=== PATIENT | female | born 1990 | race Caucasian/White ===

== ENCOUNTER 2017-08-19 12:28 | Inpatient (IN) | payer OTHER ==
[~2017-08-19 12:28] MED LIST: ONDANSETRON 4 MG INJ
[2017-08-19 15:42] LABS: ADD MAN DIFF? NO
[2017-08-19 15:43] LABS: ABNORMAL IP MESSAGE 1; BASOPHILS % 0.3 % (0.0-2.0); EOSINOPHILS # 0.1 10^3/ul (0.0-0.5); EOSINOPHILS % 0.6 % (0.0-7.0); HEMOGLOBIN 11.6 g/dl (12.0-16.0); LYMPHOCYTES % 20.4 % (15.0-51.0); MEAN CORPUSCULAR HEMOGLOBIN 28.2 pg (29.0-33.0); MEAN CORPUSCULAR HGB CONC 33.1 g/dl (32.0-37.0); MEAN CORPUSCULAR VOLUME 85.2 fl (82.0-101.0); MEAN PLATELET VOLUME 13.1 fl (7.4-10.4); MONOCYTE # 0.5 10^3/ul (0.3-0.9); MONOCYTES % 4.7 % (0.0-11.0); NEUTROPHIL # 7.1 10^3/ul (1.6-7.5); NEUTROPHILS % 73.6 % (39.0-77.0); PLATELET COUNT 103 10^3/UL (140-415); RED BLOOD COUNT 4.11 10^6/ul (4.20-5.40); RED CELL DISTRIBUTION WIDTH 14.8 % (11.5-14.5)
[2017-08-19 15:43] LABS: WHITE BLOOD COUNT 9.6 10^3/ul (4.8-10.8)
[2017-08-19 15:45] LABS: POSITIVE DIFF @See below
[2017-08-19] MEDS: LACTATED RINGER'S 1,000 ML IV ×3 (15:51→20:45)
[2017-08-19 16:02] LABS: ALANINE AMINOTRANSFERASE 26 IU/L (13-69); ALBUMIN 3.6 g/dl (3.3-4.9); ALBUMIN/GLOBULIN RATIO 1.12; ALKALINE PHOSPHATASE 97 IU/L (42-121); ANION GAP 17 (8-16); ASPARTATE AMINO TRANSFERASE 18 IU/L (15-46); BILIRUBIN,INDIRECT 0.2 mg/dl (0-1.1); BILIRUBIN,TOTAL 0.2 mg/dl (0.2-1.3); BLOOD UREA NITROGEN 10 mg/dl (7-20); CARBON DIOXIDE 21 mmol/L (21-31); CHLORIDE 106 mmol/L (97-110); CREATININE 0.63 mg/dl (0.44-1.00); GLUCOSE 77 mg/dl (70-220); SODIUM 140 mmol/L (135-144); TOTAL PROTEIN 6.8 g/dl (6.1-8.1)
[2017-08-19 16:52] LABS: INR 0.95; PROTIME 12.8 Sec (11.9-14.9)
[2017-08-19 16:53] LABS: PARTIAL THROMBOPLASTIN TIME 27.2 Sec (25.0-35.0)
[2017-08-19] MEDS ORDERED: MISOPROSTOL 200 MCG TAB PR (17:00)
[2017-08-19] MEDS ORDERED: CARBOPROST 250 MCG INJ IM (17:00)
[2017-08-19] MEDS ORDERED: METHYLERGONOVINE 0.2 MG INJ IM (17:00)
[2017-08-19] MEDS ORDERED: OXYTOCIN 30 UNITS/LR 500 ML IV (17:00)
[2017-08-19 18:32] LABS: UR BACTERIA FEW /HPF (NONE SEEN); UR MUCUS FEW /HPF (NONE SEEN); UR RBC 0 /HPF (0-5); UR SQUAMOUS EPITHELIAL CELL FEW /HPF (FEW); UR WBC 1 /HPF (0-5)
[2017-08-19 18:34] LABS: UR KETONES (Dip) 2+ mg/dL (NEGATIVE)
[2017-08-19 18:35] LABS: ADD UMIC NO; UR ASCORBIC ACID NEGATIVE (NEGATIVE); UR BILIRUBIN (Dip) NEGATIVE (NEGATIVE); UR BLOOD (Dip) NEGATIVE (NEGATIVE); UR CLARITY CLEAR (CLEAR); UR COLOR YELLOW (YELLOW); UR GLUCOSE (Dip) NEGATIVE (NEGATIVE); UR LEUKOCYTE ESTERASE (Dip) NEGATIVE Leu/ul (NEGATIVE); UR NITRITE (Dip) NEGATIVE (NEGATIVE); UR TOTAL PROTEIN (Dip) NEGATIVE (NEGATIVE); UR UROBILINOGEN (Dip) NEGATIVE (NEGATIVE); URINE SPECIFIC GRAVITY (Dip) 1.015 (1.003-1.030)
[2017-08-19 20:00] LABS: HEPATITIS B SURFACE ANTIGEN NEGATIVE (NEGATIVE)
[2017-08-19] MEDS: ONDANSETRON 4 MG INJ IV ×2 (20:40→20:41)
[2017-08-19] MEDS: CITRIC ACID/SODIUM CITRATE 15 ML CUP PO ×2 (20:41)
[2017-08-19] MEDS: CEFAZOLIN 2 GM/50 ML (PMX) 50 ML IV (21:00)
[2017-08-19] MEDS ORDERED: morphine SULFATE/PF (10 MG/10 ML) INJ (21:24)
[2017-08-19] MEDS ORDERED: OXYTOCIN 10 UNIT INJ (21:24)
[2017-08-19] MEDS ORDERED: PHENYLephrine (100 MCG/ML) 5ML SYG (21:24)
[2017-08-19] MEDS ORDERED: BUPIVACAINE 0.75%/DEXT (SPINAL) 2 ML INJ (21:24)
[2017-08-19] MEDS ORDERED: CEFAZOLIN 1 GM INJ (21:33)
[2017-08-19] MEDS ORDERED: ACETAMINOPHEN 500 MG TAB PO (22:00)
[2017-08-19] MEDS ORDERED: morphine 2 MG INJ IV ×2 (22:00)
[2017-08-19] MEDS ORDERED: NALOXONE (0.4 MG/ML) INJ IV (22:00)
[2017-08-19] MEDS ORDERED: NALBUPHINE HCL (10 MG/1 ML) INJ IV (22:00)
[2017-08-19] MEDS ORDERED: HYDROCODONE/APAP (5/325) TAB PO (22:00)
[2017-08-19] MEDS ORDERED: HYDROmorphONE 0.5 MG/0.5 ML SYG IV ×2 (22:00)
[2017-08-19] MEDS ORDERED: FENTAnyl 50 MCG/ML VIAL (22:01)
[2017-08-19] MEDS ORDERED: DEXAMETHASONE 4 MG/ML 1 ML INJ (22:18)
[2017-08-19] MEDS ORDERED: METOCLOPRAMIDE 10 MG INJ (22:18)
[2017-08-19] MEDS ORDERED: KETOROLAC 30 MG INJ (22:18)
[2017-08-20] MEDS: OXYTOCIN 30 UNITS/LR 500 ML IV ×2 (00:01→03:28)
[2017-08-20] MEDS: DIPHENHYDRAMINE 50 MG INJ IV (00:04)
[2017-08-20] MEDS: LACTATED RINGER'S 1,000 ML IV ×3 (02:36→19:00)
[2017-08-20] MEDS ORDERED: OXYTOCIN 30 UNITS/LR 500 ML IV (03:00)
[2017-08-20] MEDS ORDERED: METHYLERGONOVINE 0.2 MG INJ IM (03:00)
[2017-08-20] MEDS ORDERED: MISOPROSTOL 200 MCG TAB PR (03:00)
[2017-08-20] MEDS ORDERED: CARBOPROST 250 MCG INJ IM (03:00)
[2017-08-20] MEDS: ONDANSETRON 4 MG INJ IV ×2 (06:03→12:31)
[2017-08-20] MEDS: SENNA/DOCUSATE NA (8.6MG/50MG) TAB PO ×2 (08:50→21:06)
[2017-08-20 10:22] LABS: ADD MAN DIFF? NO
[2017-08-20 10:28] LABS: ABNORMAL IP MESSAGE 1; BASOPHILS % 0.1 % (0.0-2.0); HEMATOCRIT 35.4 % (37.0-47.0); HEMOGLOBIN 12.1 g/dl (12.0-16.0); LYMPHOCYTES # 0.8 10^3/ul (0.8-2.9); LYMPHOCYTES % 5.6 % (15.0-51.0); MEAN CORPUSCULAR HEMOGLOBIN 28.9 pg (29.0-33.0); MEAN CORPUSCULAR HGB CONC 34.2 g/dl (32.0-37.0); MEAN CORPUSCULAR VOLUME 84.7 fl (82.0-101.0); MEAN PLATELET VOLUME 13.1 fl (7.4-10.4); MONOCYTE # 0.4 10^3/ul (0.3-0.9); MONOCYTES % 2.9 % (0.0-11.0); NEUTROPHIL # 13.4 10^3/ul (1.6-7.5); NEUTROPHILS % 90.9 % (39.0-77.0); PLATELET COUNT 101 10^3/UL (140-415); RED BLOOD COUNT 4.18 10^6/ul (4.20-5.40); RED CELL DISTRIBUTION WIDTH 14.3 % (11.5-14.5)
[2017-08-20 10:28] LABS: WHITE BLOOD COUNT 14.8 10^3/ul (4.8-10.8)
[2017-08-20 10:33] LABS: POSITIVE DIFF @See below
[2017-08-20] MEDS: KETOROLAC 30 MG INJ IV ×2 (12:31→21:36)
[2017-08-20] MEDS: LANOLIN 7 GM TUBE TOP (15:20)
[2017-08-20 22:15] LABS: RAPID PLASMA REAGIN NONREACTIVE (NR)
[2017-08-20] MEDS: OXYCODONE/ACETAMINOPHEN (5/325) TAB PO (23:14)
[2017-08-21] MEDS: LACTATED RINGER'S 1,000 ML IV (02:36)
[2017-08-21] MEDS: IBUPROFEN 800 MG TAB PO ×3 (05:32→21:30)
[2017-08-21] MEDS: SENNA/DOCUSATE NA (8.6MG/50MG) TAB PO ×2 (09:32→21:29)
[2017-08-21] MEDS: INFLUENZA VIRUS VACCINE 0.5 ML (DISPENSING) IM* (09:34)
[2017-08-21] MEDS: OXYCODONE/ACETAMINOPHEN (5/325) TAB PO ×3 (09:38→18:38)
[2017-08-21] MEDS: MEASLES,MUMPS,RUBELLA VACCINE INJ SC* (11:29)
[2017-08-22] MEDS: IBUPROFEN 800 MG TAB PO ×2 (06:45→14:00)
[2017-08-22] MEDS: SENNA/DOCUSATE NA (8.6MG/50MG) TAB PO (12:03)
[2017-08-22] MEDS: OXYCODONE/ACETAMINOPHEN (5/325) TAB PO (12:03)
[2017-08-22] MEDS: DIPHTH/TET/ACEL PERTUSS (ADULT) 0.5 ML VIAL IM* (14:05)
[2017-08-22] MEDS ORDERED: IBUPROFEN 800 MG TAB PO (22:00)
== END 2017-08-22 16:05 | disposition home or self-care (01) | DRG 766 ==
LOC: OBT 12:28 → PP1 08-20 02:16 → L-D 12:29 → OBT 16:30 → L-D 16:30
PROC: 10D00Z1 Extraction of Products of Conception, Low, Open Approach (ICD-10-PCS; principal; 2017-08-19 20:00)
PROC: 3E033VJ Introduction of Other Hormone into Peripheral Vein, Percutaneous Approach (ICD-10-PCS; 2017-08-19 20:00)
DX: O34.211 Maternal care for low transverse scar from previous cesarean delivery (principal); Z3A.37 37 weeks gestation of pregnancy; Z37.0 Single live birth
CPT/HCPCS: 80053; 81003; 85025; 85610; 85730; 86592; 86850; 86900; 86901; 87340; 90686; 94760; 99464